=== PATIENT | female | born 1985 | race Two or more races ===

== ENCOUNTER 2019-07-26 09:39 | Observation (INO) | payer MEDICAID, OTHER ==
[~2019-07-26] VITALS: Ht 167.6 cm; Wt 95.3 kg
[2019-07-26 09:49] VITALS: BP 119/82
[2019-07-26] MEDS ORDERED: PRENCAP11 PO (10:43)
== END 2019-07-26 11:25 | disposition home or self-care (01) | DRG 566 ==
LOC: ER 09:39 → LDRP 10:05
PROVIDERS: ADMIT Obstetrics & Gynecology; ATTEND Obstetrics & Gynecology
DX: O26.893 Other specified pregnancy related conditions, third trimester (principal); M54.5 Low back pain; R10.9 Unspecified abdominal pain; Z3A.38 38 weeks gestation of pregnancy
CPT/HCPCS: 59025; 81002; 99284; G0378